=== PATIENT | male | born 1975 | race Caucasian/White ===

== ENCOUNTER 2021-09-13 23:50 | Emergency (ER) | payer SELFPAY ==
[2021-09-13] MEDS ORDERED: Aspirin 81 MG Tab.Chew PO ONE (23:54)
[2021-09-13] MEDS ORDERED: ALPRAZolam 0.5 MG Tab PO ONE (23:57)
[2021-09-14 00:24] LABS: BLOOD UREA NITROGEN,BUN 21 mg/dL (7.0-18.0); CARBON DIOXIDE,CO2 24.2 mmol/L (21.0-32.0); CHLORIDE,CL 107 mmol/L (98-107); GLUCOSE RANDOM 228 mg/dL (74-106); POTASSIUM,K 3.9 mmol/L (3.5-5.1); SODIUM,NA 141 mmol/L (136-148)
== END 2021-09-14 00:43 | disposition home or self-care (01) ==
LOC: MW.ED 23:50
DX: R07.9 Chest pain, unspecified (principal); F43.9 Reaction to severe stress, unspecified
CPT/HCPCS: 36415; 71045; 80053; 84484; 85025; 93005; 99285; A9270